=== PATIENT | female | born 1985 | race Caucasian/White ===

== ENCOUNTER 2024-04-26 10:02 | Emergency (ER) | payer BC ==
[~2024-04-26] VITALS: Ht 175.3 cm; Wt 104.5 kg
[2024-04-26] MEDS ORDERED: NS 1,000 ML IV ONE (10:15)
[2024-04-26 10:33] LABS: BASO # 0.1 K/mm3 (0.0-0.2); BASO % 0.7 % (0.0-2.0); EOS # 0.3 K/mm3 (0.0-0.7); EOS % 2.6 % (0.0-4.0); GRAN # 7.3 K/mm3 (1.4-6.5); GRAN % 64.5 % (42.2-75.2); HEMATOCRIT 48.2 % (37.0-47.0); HEMOGLOBIN 16.2 g/dl (12.5-16.0); LYMPH # 2.9 K/mm3 (1.2-3.4); LYMPH % 25.5 % (20.0-51.0); MEAN CELL VOLUME 88 fl (80.0-100.0); MEAN CORPUSCULAR HEMOGLOBIN 30 pg (27-31); MEAN CORPUSCULAR HGB CONC 34 g/dl (33.0-37.0); MEAN PLATELET VOLUME 10.7 fl (7.4-10.4); MONO # 0.7 K/mm3 (0.1-0.6); MONO % 6.3 % (1.7-9.3); PLATELET COUNT 301 K/mm3 (130-400); RED BLOOD COUNT 5.49 M/mm3 (4.10-5.30); REDCELL DISTRIBUTION WIDTH-CV 12.3 % (11.5-14.5)
[2024-04-26] MEDS ORDERED: Adenosine 6 MG/2 ML VIAL IV SCH (10:47)
[2024-04-26 10:54] LABS: ALANINE AMINOTRANSFERASE 34 U/L (0-55); ALBUMIN 4.4 g/dL (3.5-5.0); ALKALINE PHOSPHATASE 99 U/L (40-150); ANION GAP 17 mmol/L (7-16); AST,SGOT 35 U/L (5-34); BILIRUBIN,TOTAL 0.8 mg/dL (0.2-1.2); BLOOD UREA NITROGEN 10 mg/dL (7-19); CALCIUM 9.5 mg/dL (8.4-10.2); CHLORIDE 105 mEq/L (98-107); CREATININE, serum 0.97 mg/dL (0.57-1.11); GLUCOSE 330 mg/dL (70-99); LIPASE 44 U/L (8-78); SODIUM 137 mEq/L (136-145); TOTAL PROTEIN 7.8 g/dl (6.2-8.1)
[2024-04-26] MEDS ORDERED: Metoprolol Tartrate 50 MG TAB PO ONE (11:00)
[2024-04-26 11:08] LABS: TROPONIN-I < 0.010 ng/mL (0.00-0.033)
[2024-04-26 11:30] LABS: COLLECTION METHOD CLEAN CATCH
[2024-04-26 11:48] LABS: URINE APPEARANCE CLEAR (CLEAR/HAZY); URINE BLOOD 2+ (NEGATIVE); URINE COLOR YELLOW (YELLOW); URINE GLUCOSE 3+ (NEGATIVE); URINE KETONE 1+ (NEGATIVE); URINE NITRATE NEGATIVE (NEGATIVE); URINE PROTEIN(semi-quant) NEGATIVE (NEGATIVE); URINE UROBILINOGEN 0.2 E.U/dL (0.2-1.0)
[2024-04-26 11:57] LABS: THYROID STIMULATING HORMONE 1.209 uIU/mL (0.350-4.940)
[2024-04-26] MEDS ORDERED: TOPROL XL 50MG50 MG PO (13:06)
[2024-04-26 13:40] VITALS: BP 117/81; PULSE 95; TEMP 98.1
== END 2024-04-26 13:40 | disposition home or self-care (01) ==
LOC: COL.ER 10:02
PROVIDERS: Family Medicine
DX: I47.10 Supraventricular tachycardia, unspecified (principal); R73.9 Hyperglycemia, unspecified
CPT/HCPCS: J0153; J7030